=== PATIENT | female | born 1960 | race Caucasian/White ===

== ENCOUNTER 2016-04-01 22:15 | Emergency (ER) | payer MEDICAID ==
[2016-04-01] MEDS ORDERED: ACETAMINOPHEN 500 MG TABLET PO ONE (22:29)
[2016-04-01] MEDS ORDERED: 0.9 % SODIUM CHLORIDE 1000ML 1,000 ML IV SCH (22:30)
--- NOTE | 2016-04-01 22:40 | Emergency Department Record ---
History of Present Illness - General Chief Complaint: Cough Stated Complaint: COLD AND PRODUCTIVE COUGH Time Seen by Provider: 04/01/16 22:28 Source: Patient Mode of Arrival: Ambulatory Limitations: No limitations - History of Present Illness Initial Comments: 55 yo female presents to ED with a CC of cough and fever symptoms for the past 2 days. Patient reports that she was seen in [facility] yesterday morning for what sound like bronchospasm symptoms, was started on prednisone at that time. Patient has subsequently developed a fever and productive cough symptoms. MD Complaint: Cough, Fever Onset/Timin -: Days(s) Severity: Moderate Severity scale (1-10): 8 Consistency: Intermittent Improves With: Nothing Worsens With: Deep breaths Associated Symptoms: Cough, Fever Treatments Prior to Arrival: Ibuprofen - Related Data Home Medications Medication Instructions Recorded Confirmed Last Taken Lisinopril [Zestril] 20 mg PO DAILY tab 03/31/16 04/01/16 04/01/16 Previous Rx's Medication Instructions Recorded Azithromycin [Zithromax] 250 mg PO DAILY #6 tab 04/01/16 Oseltamivir Phosphate [Tamiflu] 75 mg PO BID #10 capsule 04/01/16 Allergies Allergy/AdvReac Type Severity Reaction Status Date / Time No Known Drug Allergies Allergy Verified 04/01/16 22:28 Travel Screening - Travel/Exposure Within Last 30 Days Have you traveled within the last 30 days?: No - Travel/Exposure Within Last Year Have you traveled outside the [place] in the last year?: Yes Location Detail:: [place] in september - [place] Travel Details Have you been exposed to anyone with a communicable illness?: No - Travel Symptoms Symptom Screening: None Review of Systems Constitutional: Reports: Fever. Denies: Chills, Malaise, Night sweats Eyes: Denies: Eye discharge, Eye pain ENT: Denies: Congestion, Ear pain, Epistaxis Respiratory: Reports: Cough, Dyspnea, Wheezes Cardiovascular: Reports: Palpitations. Denies: Chest pain, Edema, Syncope Endocrine: Denies: Fatigue, Heat or cold intolerance Gastrointestinal: Denies: Abdominal pain, Nausea, Vomiting Genitourinary: Denies: Dysuria, Frequency, Hematuria, Incontinence Musculoskeletal: Denies: Arthralgia, Back pain, Gout, Joint swelling Skin: Denies: Bruising, Change in color, Rash Neurological: Denies: Abnormal gait, Confusion, Headache, Seizure Psychiatric: Denies: Anxiety Hematological/Lymphatic: Denies: Anemia, Blood Clots Past Medical History - SOCIAL HISTORY Smoking Status: Former smoker Alcohol Use: Rare Drug Use: None - RESPIRATORY Hx Respiratory Disorders: No - CARDIOVASCULAR Hx Cardio Disorders: Yes Hx Hypertension: Yes - NEURO Hx Neuro Disorders: No - GI Hx GI Disorders: No - Hx Genitourinary Disorders: No - ENDOCRINE Hx Endocrine Disorders: No - MUSCULOSKELETAL Hx Musculoskeletal Disorders: No - PSYCH Hx Psych Problems: No - HEMATOLOGY/ONCOLOGY Hx Hematology/Oncology Disorders: No Family Medical History Any Significant Family History?: No Physical Exam - General General Appearance: Alert, Oriented x3, Cooperative, Moderate distress Limitations: No limitations - Head Head exam: Atraumatic, Normocephalic, Normal inspection Head exam detail: negative: Abrasion, Contusion, Alex's sign, General tenderness, Hematoma, Laceration - Eye Eye exam: Normal appearance. negative: Conjunctival injection, Periorbital swelling, Periorbital tenderness, Scleral icterus - ENT Ear exam: negative: Auricular hematoma, Auricular trauma Nasal Exam: negative: Active bleeding, Discharge, Dried blood, Foreign body Mouth exam: negative: Drooling, Laceration, Muffled voice, Tongue elevation - Neck Neck exam: Normal inspection. negative: Meningismus, Tenderness - Respiratory Respiratory exam: Normal lung sounds bilaterally. negative: Rales, Respiratory distress, Rhonchi, Stridor, Wheezes - Cardiovascular Cardiovascular Exam: Normal rhythm, Normal heart sounds, Tachycardia - GI/Abdominal GI/Abdominal exam: Soft. negative: Rebound, Rigid, Tenderness - Rectal Rectal exam: Deferred - exam: Deferred - Extremities Extremities exam: Normal inspection. negative: Calf tenderness, Pedal edema, Tenderness - Back Back exam: Denies: CVA tenderness (R), CVA tenderness (L) - Neurological Neurological exam: Alert, Normal gait, Oriented X3 - Psychiatric Psychiatric exam: Normal affect, Normal mood - Skin Skin exam: Normal color. negative: Abrasion Type of lesion: negative: abrasion Course Vital Signs 04/01/16 22:23 Temperature 100.6 F H Pulse Rate [ 123 H Pulse Ox Probe] Respiratory 32 H Rate Blood Pressure 156/95 [Right Arm] Pulse Ox 96 - Reevaluation(s) Reevaluation #1: 04/01/16 23:06 Labs reviewed, Influenza positive, labs are otherwise grossly unremarkable for an acute process. CXR: No acute process Reevaluation #2: 04/01/16 23:15 Patient was updated on all results, started on Tamiflu in the ED. IVFs are bout 50% completed. Will recheck temperature and pulse when the patient's IVFs have finished infusing. Reevaluation #3: 04/01/16 23:41 Pulse down 98, RR 18, Temperature 98.4. Patient reports that she is feeling much better and appears stable for discharge at this time on Tamiflu and Zithromax. Medical Decision Making - Lab Data Result diagrams: 04/01/16 22:46 04/01/16 22:46 Disposition Disposition: Discharge Clinical Impression: Influenza A Disposition: Home, Self-Care Condition: (2) Stable Instructions: Influenza (ED) Additional Instructions: Return to ED if your symptoms worsen or if you have any concerns. Tamiflu and Zithromax as directed. Follow-up with your family doctor in 3-5 days as directed. Prescriptions: Oseltamivir Phosphate [Tamiflu] 75 mg PO BID #10 capsule Azithromycin [Zithromax] 250 mg PO DAILY #6 tab Forms: Patient Portal Access Time of Disposition: 23:45
[2016-04-01 22:52] LABS: BASO % 0.2 % (0-6); EOS % 0.9 % (0-6); GRAN % 69.8 % (47-80); HEMATOCRIT 36.3 % (35.0-47.0); HEMOGLOBIN 12.3 gm/dl (11.6-16.0); LYMPH % 16.1 % (16-45); MEAN CELL VOLUME 88.8 fl (81-97); MEAN CORPUSCULAR HEMOGLOBIN 30.1 pg (27-33); MEAN CORPUSCULAR HGB CONC 33.9 g/dl (32-36); MEAN PLATELET VOLUME 8.9 fl (7.4-10.4); PLATELET COUNT 241 K/uL (130-400); RED BLOOD COUNT 4.09 M/uL (3.80-5.40); RED CELL DISTRIBUTION WIDTH 14.8 % (11.5-14.5); WHITE BLOOD COUNT W/O DIFF 6.5 K/uL (4.2-12.2)
[2016-04-01 23:01] LABS: ALB/GLOB RATIO 1.4 (1.1-1.8); ALBUMIN 4.3 gm/dL (3.5-5.0); ALKALINE PHOSPHATASE 76 U/L (38-126); ALT/SGPT 36 U/L (9-52); ANION GAP 15.2 (7-16); AST/SGOT 22 U/L (14-36); BILIRUBIN,TOTAL 0.82 mg/dL (0.2-1.3); BLOOD UREA NITROGEN 20 mg/dL (7-17); CARBON DIOXIDE 22.8 mmol/L (22-30); CREATININE 0.7 mg/dL (0.52-1.04); EST GLOMERULAR FILTRATION RATE > 60 ml/min; GLUCOSE,RANDOM 123 mg/dL (70-110); TOTAL PROTEIN 7.3 gm/dL (6.3-8.2)
[2016-04-01 23:04] LABS: INFLUENZA A POSITIVE (NEGATIVE); INFLUENZA B NEGATIVE (NEGATIVE)
[2016-04-01] MEDS ORDERED: OSTELTAMIVIR 75 MG CAP PO ONE (23:09)
--- NOTE | 2016-04-05 13:02 | RADIOLOGY REPORT ---
DATE: 04/01/2016 at 22:56. EXAM: Chest, two views. HISTORY: Cough and fever. TECHNIQUE: Upright PA and lateral views of the chest were obtained. COMPARISON: None. FINDINGS: The heart is not enlarged and the pulmonary vasculature is nondilated. The lungs and pleural spaces are clear. There are mild degenerative endplate changes scattered throughout the visualized spine. IMPRESSION: NO RADIOGRAPHIC EVIDENCE OF ACUTE CARDIOPULMONARY DISEASE. JOB NUMBER: [id number] MTDD
== END 2016-04-02 | disposition home or self-care (01) ==
LOC: ER 22:15
DX: J10.1 Influenza due to other identified influenza virus with other respiratory manifestations (principal); R50.81 Fever presenting with conditions classified elsewhere
CPT/HCPCS: 71020; 80053; 85025; 87400; 99284; J7030